=== PATIENT | male | born 1995 | race Caucasian/White ===

== ENCOUNTER 2019-09-11 13:19 | Emergency (ER) | payer OTHER ==
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
== END 2019-09-11 16:43 | disposition home or self-care (01) ==
LOC: DL.ED 13:19
DX: L08.9 Local infection of the skin and subcutaneous tissue, unspecified (principal); Z88.8 Allergy status to other drugs, medicaments and biological substances; Z79.899 Other long term (current) drug therapy
CPT/HCPCS: 99283